=== PATIENT | male | born 1985 | race Caucasian/White ===

== ENCOUNTER 2020-10-17 17:46 | Emergency (ER) | payer MEDICAID ==
--- NOTE | 2020-10-17 18:00 | EDM.PDOC ---
ED HPI GENERAL MEDICAL PROBLEM - General Chief Complaint: General Stated Complaint: arm pain Time Seen by Provider: 10/17/20 18:00 Source of Information: Reports: Patient History Limitations: Reports: No Limitations - History of Present Illness INITIAL COMMENTS - FREE TEXT/NARRATIVE: patient presented to the ER with a c/o RUE pain and tingling for 10 days. Reports that it started after he tried to move a heavy AC - felt a sharp shooting pain down his RUE. Since then it has been progressively getting worse. Pain starts in the right shoulder and radiate to the right forearm - also associated with tingling in the distal half of the right forearm. Pain is shooting in nature and worse with movement. Unable to raise his arm above the shoulder level, affecting his daily mobility and driving. No weakness of the arm. Have tried tramadol 3 days, as well as, Aleve with minimal pain relief. 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, Other Medication(s) - Related Data Allergies Allergy/AdvReac Type Severity Reaction Status Date / Time No Known Allergies Allergy Verified 10/17/20 17:50 Home Meds: Home Meds Terbinafine [LamISIL] 250 mg PO DAILY 10/17/20 [History] traMADol [Ultram] 50 mg PO Q6H PRN 10/17/20 [History] ED ROS GENERAL - Review of Systems Review Of Systems: See Below HEENT: Reports: No Symptoms Respiratory: Reports: No Symptoms Cardiovascular: Reports: No Symptoms GI/Abdominal: Reports: No Symptoms Musculoskeletal: Reports: Shoulder Pain Neurological: Reports: Numbness, Tingling Psychiatric: Reports: No Symptoms ED EXAM, GENERAL - Physical Exam Exam: See Below Exam Limited By: No Limitations General Appearance: Alert, WD/WN, No Apparent Distress Eye Exam: Bilateral Eye: EOMI Neck: Limited Range of Motion (to the right due to pain) Respiratory/Chest: No Respiratory Distress, Lungs Clear Cardiovascular: Regular Rate, Rhythm Back Exam: Normal Inspection, Full Range of Motion Extremities: Normal Inspection, Other (unable to lift right arm above the shoulder level. Mild TTP over the claviculo-humeral head. ) Skin Exam: Warm Course - Vital Signs Last Recorded V/S: Last Vital Signs Temp 36.9 C 10/17/20 17:52 Pulse 101 H 10/17/20 17:52 Resp 18 10/17/20 17:52 BP 142/98 H 10/17/20 17:52 Pulse Ox 100 10/17/20 17:52 - Orders/Labs/Meds Orders: Active Orders 24 hr Category Date Time Status Cervical Spine 2V or 3V [CR] Stat Exams 10/17/20 18:12 Ordered Shoulder Comp Rt [CR] Stat Exams 10/17/20 18:12 Ordered Meds: Medications Discontinued Medications Generic Name Dose Route Start Last Admin Trade Name Ruyq PRN Reason Stop Dose Admin Gabapentin 300 mg 10/17/20 18:11 10/17/20 18:18 Gabapentin 300 Mg Cap PO 10/17/20 18:12 300 mg ONETIME ONE Administration Methylprednisolone Sodium Succinate 125 mg 10/17/20 18:11 10/17/20 18:18 Methylprednisolone Sodium Succinate 125 Mg/2 Ml Sdv IM 10/17/20 18:12 125 mg ONETIME ONE Administration Orphenadrine Citrate 60 mg 10/17/20 18:11 10/17/20 18:20 Orphenadrine 60 Mg/2 Ml Inj IM 10/17/20 18:12 60 mg ONETIME ONE Administration - Re-Assessments/Exams Free Text/Narrative Re-Assessment/Exam: 10/17/20 18:23 Xrays cervical spine - WNL - no acute findings, but straightening of the spine Xray right shoulder - WNL IM Solumedrol and Norflex - reports significant improvement Departure - Departure Time of Disposition: 19:16 Disposition: Home, Self-Care 01 Condition: Good Clinical Impression: Rotator cuff arthropathy of right shoulder, Cervical radicular pain - Discharge Information *PRESCRIPTION DRUG MONITORING PROGRAM REVIEWED*: Not Applicable *COPY OF PRESCRIPTION DRUG MONITORING REPORT IN PATIENT APRIL: Not Applicable Forms: ED Department Discharge Sepsis Event Note (ED) - Evaluation Sepsis Screening Result: No Definite Risk - Focused Exam Vital Signs: Vital Signs Temp Pulse Resp BP Pulse Ox 10/17/20 17:52 36.9 C 101 H 18 142/98 H 100 - Problem List & Annotations (1) Cervical radicular pain SNOMED Code(s): 185444769 Code(s): M54.12 - RADICULOPATHY, CERVICAL REGION Status: Acute Priority: Low Current Visit: Yes (2) Rotator cuff arthropathy of right shoulder SNOMED Code(s): 09881222448750404 Code(s): M12.811 - OTH SPECIFIC ARTHROPATHIES, NEC, RIGHT SHOULDER Status: Acute Priority: Low Current Visit: Yes - Problem List Review Problem List Initiated/Reviewed/Updated: Yes - My Orders Last 24 Hours: My Active Orders 10/17/20 18:12 Cervical Spine 2V or 3V [CR] Stat Shoulder Comp Rt [CR] Stat - Assessment/Plan Last 24 Hours: My Active Orders 10/17/20 18:12 Cervical Spine 2V or 3V [CR] Stat Shoulder Comp Rt [CR] Stat Plan: - keep arm in a sling - use pain medications as prescribed - follow up with your PCP in 1-2 weeks and discuss if MRI of shoulder or cervical spine are indicated - avoid heavy lifting and excessive use of right arm until symptoms resolve
[2020-10-17] MEDS ORDERED: Gabapentin 300 MG Cap PO ONE (18:11)
[2020-10-17] MEDS ORDERED: Orphenadrine 60 MG/2 ML Inj IM ONE (18:11)
[2020-10-17] MEDS ORDERED: methylPREDNISolone Sodium Succinate 125 MG/2 ML SDV IM ONE (18:11)
--- NOTE | 2020-10-18 07:42 | CR ---
DATE OF SERVICE: 10/17/20 CLINICAL DATA: Pain, tingling down to the right arm. CERVICAL SPINE: No priors. There is diffuse osteopenia. There is mild reversal of the normal cervical lordosis on the lateral view. This is most likely positional or due to muscle spasm. There is slight retrolisthesis of C3 on C4 and slight anterolisthesis of C2 on C3. There are disc margin spurs with disc space narrowing at the C3-4 and C5-6 levels. There is mild facet joint hypertrophy at multiple levels. No acute fracture or dislocation. No focal lytic or blastic bone lesions. If the patient's symptoms persist, a MRI scan is recommended. [id number] [facility]
--- NOTE | 2020-10-18 07:45 | CR ---
DATE OF SERVICE: 10/17/20 CLINICAL DATA: injury / numbness RIGHT SHOULDER: No priors. There are osteoarthritic changes of the AC joint. No acute fracture or dislocation. No lytic or blastic bone lesions. [id number] [facility]
== END 2020-10-17 19:35 | disposition home or self-care (01) ==
LOC: LB.ED 17:46
DX: M19.011 Primary osteoarthritis, right shoulder (principal); M54.12 Radiculopathy, cervical region
CPT/HCPCS: 72040; 73030-RT; 96372; 99283; A9270-GY; J2360; J2930